=== PATIENT | female | born 1995 | race Hispanic/Latino ===

== ENCOUNTER 2024-06-27 16:21 | Emergency (ER) | payer SELFPAY ==
[~2024-06-27] VITALS: Ht 147.3 cm; Wt 86.2 kg
--- NOTE | 2024-06-27 17:51 | HMCIMG ---
ULTRASOUND OF THE PELVIS ULTRASOUND ABD VASCULAR LIMITED INDICATION: Vaginal bleeding COMPARISONS: None TECHNIQUE: Transabdominal real-time sonographic images were acquired earlier, and subsequently made available for review. FINDINGS: The uterus measures 7.3 x 4.3 x 3.6 cm. The uterus is normal in echotexture and contour. The endometrial thickness measures 8.0 mm. The right ovary measures 2.5 x 1.5 x 2.7 cm. The right ovary is normal in size, shape and echogenicity. No right adnexal masses demonstrated. Color Doppler flow is normal throughout the right ovary. Spectral Doppler analysis demonstrates a normal waveform pattern. The left ovary measures 2.4 x 1.9 x 2.8 cm. The left ovary is normal in size, shape and echogenicity. No left adnexal masses demonstrated. Color Doppler flow is normal throughout the left ovary. Spectral Doppler analysis demonstrates a normal waveform pattern. No free pelvic fluid demonstrated. IMPRESSION: No acute pelvic abnormality noted.
[2024-06-27 18:18] LABS: BASOPHILS # (AUTO) 0.03 K/uL (0.00-0.20); BASOPHILS % (AUTO) 0.3 % (0.0-5.0); EOSINOPHILS # (AUTO) 0.11 K/uL (0.00-0.70); EOSINOPHILS % (AUTO) 1.1 % (0.0-8.0); HEMATOCRIT 40.1 % (36-48); IMMATURE GRANULOCYTE ABSOLUTE 0.02 K/uL (0-1); LYMPHOCYTES # (AUTO) 3.4 K/uL (1.0-4.8); LYMPHOCYTES % (AUTO) 33.5 % (21.0-51.0); MEAN CORPUSCULAR HEMOGLOBIN 28.8 pg (27.0-33.0); MEAN CORPUSCULAR HGB CONC 32.7 g/dL (32.0-36.0); MEAN CORPUSCULAR VOLUME 88.1 fL (79-99); MONOCYTES # (AUTO) 0.8 K/uL (0.1-1.0); MONOCYTES % (AUTO) 7.8 % (3.0-13.0); NEUTROPHILS # (AUTO) 5.8 K/uL (1.8-7.7); NEUTROPHILS % (AUTO) 57.1 % (40.0-77.0); PLATELET COUNT (AUTO) 312 K/uL (130-400); RED BLOOD CELL COUNT(AUTO) 4.55 MIL/uL (4.00-5.50); RED CELL DISTRIBUTION WIDTH 13.5 % (11.0-15.5); WHITE BLOOD COUNT (AUTO) 10.2 K/uL (4.8-10.8)
[2024-06-27 18:40] LABS: CREATININE 0.7 mg/dL (0.5-1.0); POTASSIUM 4.3 mmol/L (3.5-5.1)
[2024-06-27 18:54] LABS: THYROID STIMULATING HORMONE 3.39 uIU/mL (0.36-3.74)
--- NOTE | 2024-06-27 18:58 | ERN ---
General Chief Complaint: Vaginal Problems/Bleeding Stated Complaint: PELVIC PAIN,MULTIPLE COMPLAINTS Time Seen by MD: 16:22 Time Seen by Midlevel: 16:22 Source: patient History of Present Illness Initial Comments Patient is a 21-year-old female with a past medical history of dysfunctional uterine bleeding presenting to the emergency department with pelvic pain and vaginal bleeding that has been ongoing for the last 40 days. She was not seen a primary care doctor for this and has not seen an OBGYN. She states that she was now feeling fatigued and weak. Denies any other symptoms. Denies being . Denies being on any control. She reports similar episodes in the past but has never been evaluated outpatient. Allergies: Coded Allergies: No Known Allergies (Unverified Allergy, Unknown, 06/27/24) Past Medical History Past Medical History: No Pertinent History Past Surgical History: None ROS Dictation CONSTITUTIONAL: Negative except for HPI HEAD/FACE: Negative except for HPI EENT: Negative except for HPI RESPIRATORY: Negative except for HPI GASTROINTESTINAL/ABDOMINAL: Negative except for HPI GENITOURINARY: Negative except for HPI MUSCULOSKELETAL: Negative except for HPI INTEGUMENTARY: Negative except for HPI NEUROLOGICAL/PSYCH: Negative except for HPI HEMATOLOGIC/LYMPHATIC: Negative except for HPI All Systems Negative, Except as noted above. 13 point review of systems assessed and all negative except for above. Physical Exam Physical Exam Dictation Vital Signs reviewed General Appearance: Alert, oriented x 3, no acute distress, well developed, nourished. Head and Face: non-traumatic. Eyes: PERRL, pink conjunctivas, eyelid no trauma, anterior chamber with arcus senilis. Ears: Pinnas intact and no signs of trauma or erythema ear canals clear and no discharge TM no erythema Nose: No discharge, no bleeding. Oropharynx: Mouth normal, tongue pink, pharynx clear,no erythema, tonsils no exudates, no abscesses noted, mucous membrane moist Neck: Supple, non-tender, no thyromegaly, no masses, no JVD, no bruits Breast:Deferred Chest:No tenderness, no crepitus, no paradoxical movement, no retractions Lungs:Clear, well-ventilated, symmetric, no rales, no wheezing, no rhonchi, no stridor, good breath sounds bilaterally Heart: Regular rate, regular rhythm, no murmur, no gallops Vascular: no peripheral edema, Abdomen: Soft, positive bowel sounds, nondistended, no guarding, nontender, no rebound, no masses no hepatomegaly, no splenomegaly, no Delgado's sign, no hernias. Rectal: Deferred Genital: Deferred Neurological: Normal speech, motor function intact, sensory function intact Musculoskeletal: Neck nontender, full range of motion, back nontender, full range of motion, Extremities: nontender, full range of motion Skin: Color pink, dry, no turgor, no rash, no lacerations, no abrasions, no contusions. Lymphatic: Deferred Results Laboratory and Microbiology Lab and Micro Result Laboratory Tests Test 06/27/24 17:55 White Blood Count 10.2 K/uL (4.8-10.8) Red Blood Count 4.55 MIL/uL (4.00-5.50) Hemoglobin 13.1 g/dL (12.0-16.0) Hematocrit 40.1 % (36-48) Mean Corpuscular Volume 88.1 fL (79-99) Mean Corpuscular Hemoglobin 28.8 pg (27.0-33.0) Mean Corpuscular Hemoglobin Concent 32.7 g/dL (32.0-36.0) Red Cell Distribution Width 13.5 % (11.0-15.5) Platelet Count 312 K/uL (130-400) Mean Platelet Volume 10.3 fL (7.5-10.5) Immature Granulocyte % (Auto) 0.2 % (0-1) Neutrophils (%) (Auto) 57.1 % (40.0-77.0) Lymphocytes (%) (Auto) 33.5 % (21.0-51.0) Monocytes (%) (Auto) 7.8 % (3.0-13.0) Eosinophils (%) (Auto) 1.1 % (0.0-8.0) Basophils (%) (Auto) 0.3 % (0.0-5.0) Neutrophils # (Auto) 5.8 K/uL (1.8-7.7) Lymphocytes # (Auto) 3.4 K/uL (1.0-4.8) Monocytes # (Auto) 0.8 K/uL (0.1-1.0) Eosinophils # (Auto) 0.11 K/uL (0.00-0.70) Basophils # (Auto) 0.03 K/uL (0.00-0.20) Absolute Immature Granulocyte (auto 0.02 K/uL (0-1) Nucleated Red Blood Cells 0.0 % (0.0-0.19) Sodium Level 139 mmol/L (136-145) Potassium Level 4.3 mmol/L (3.5-5.1) Chloride Level 100 mmol/L (101-111) L Carbon Dioxide Level 31 mmol/L (21-32) Blood Urea Nitrogen 12 mg/dL (7-18) Creatinine 0.7 mg/dL (0.5-1.0) Glomerular Filtration Rate Calc 121 mL/min (>90) Random Glucose 97 mg/dL (70-105) Total Calcium 9.4 mg/dL (8.5-10.1) Thyroid Stimulating Hormone (TSH) 3.39 uIU/mL (0.36-3.74) Serum Test, Qualitative NEGATIVE (NEGATIVE) Labs Reviewed?: Yes MDM MDM: Patient is a 21-year-old female with a past medical history of dysfunctional uterine bleeding presenting to the emergency department with pelvic pain and vaginal bleeding that has been ongoing for the last 40 days. She was not seen a primary care doctor for this and has not seen an OBGYN. She states that she was now feeling fatigued and weak. Denies any other symptoms. Denies being . Denies being on any control. She reports similar episodes in the past but has never been evaluated outpatient. On arrival patient is in no acute distress. Initial vital signs are stable. Blood pressure is 126/86. Heart rate is normal at 90 beats per minute. Her CBC is unremarkable. There was no leukocytosis, anemia, or thrombocytopenia. Hemoglobin is normal at 13.1. Her chemistries unremarkable. Her test is negative. Pelvic ultrasound reveals no acute pelvic abnormality. Patient was remained stable in the emergency department. Denies any episodes of vaginal bleeding while in the ER. The patient was advised that she will need to follow up with OBGYN outpatient as there is no need for emergent intervention at this time. Patient was not anemic and does not require a blood transfusion at this time. Patient is stable for discharge at this time Differential diagnosis: Anemia, dysfunctional uterine bleeding, uterine fibroids, There are no social concerns with this patient. Prescription drug management Prescriptions will include: None Medical management and examination interpretation discussions were had by me with other qualified healthcare professionals as indicated for the patient's care. ED Course Orders Procedure Category Date Status Time Cbc With Differential LAB 06/27/24 Complete 17:01 Basic Metabolic Panel LAB 06/27/24 Complete 17: Testing, LAB 06/27/24 Complete Serum Hcg 17: Thyroid Stimulating LAB 06/27/24 Complete Hormone 17:01 Us Pelvic Non-Ob US 06/27/24 Resulted Limited 17:01 Vital Signs Date Time Temp Pulse Resp B/P (MAP) Pulse Ox O2 Delivery O2 Flow Rate FiO2 06/27/24 19:30 98.4 88 18 132/81 99 Room Air* 0 21 06/27/24 16:56 98.8 90 20 126/86 100 Room Air [address] [address] IMAGING REPORT Signed PATIENT: PEEWEE IRBY MR#: [id number] : 1995 SEX: F AGE: 29 LOCATION: [facility] ORDER 04 STATUS: REG ER REPORT#: [id number] SERVICE 00 REASON: r/o uterine fibroids ORDERING PHYSICIAN: SARATH CHAWLA PROCEDURE: PELVLTD - US PELVIC NON-OB LIMITED ULTRASOUND OF THE PELVIS ULTRASOUND ABD VASCULAR LIMITED INDICATION: Vaginal bleeding COMPARISONS: None TECHNIQUE: Transabdominal real-time sonographic images were acquired earlier, and subsequently made available for review. FINDINGS: The uterus measures 7.3 x 4.3 x 3.6 cm. The uterus is normal in echotexture and contour. The endometrial thickness measures 8.0 mm. The right ovary measures 2.5 x 1.5 x 2.7 cm. The right ovary is normal in size, shape and echogenicity. No right adnexal masses demonstrated. Color Doppler flow is normal throughout the right ovary. Spectral Doppler analysis demonstrates a normal waveform pattern. The left ovary measures 2.4 x 1.9 x 2.8 cm. The left ovary is normal in size, shape and echogenicity. No left adnexal masses demonstrated. Color Doppler flow is normal throughout the left ovary. Spectral Doppler analysis demonstrates a normal waveform pattern. No free pelvic fluid demonstrated. IMPRESSION: No acute pelvic abnormality noted. DICTATED BY: LINO LINDSEY MD DATE: 06/27/241746 ELECTRONICALLY SIGNED BY: LINO LINDSEY MD DATE: 06/27/24 175 DX & DISP Disposition: Discharge Departure Impression: Primary Impression: Dysfunctional uterine bleeding Condition: Stable Additional Instructions: Your blood work today is unremarkable. Your hemoglobin is normal. Your pelvic ultrasound does not reveal any acute abnormalities. You will need to follow up with your primary care doctor and OBGYN for further evaluation. Return precautions discussed. Referrals: SELF,REFERRAL (PCP) Time of Disposition: 18:57 I have reviewed the case, and I agree with, Diagnosis and Plan I performed the substantive portion of the visit. I have reviewed and personally made and approve the management plan that is documented in the note by myself or the JOBY. I acknowledge for responsibility for the patient's management plan. SARATH CHAWLA Jun 27, 2024 18:58
[2024-06-27 19:30] VITALS: BP 132/81; PULSE 88; RESP 18; TEMP 98.5; O2SAT 99
== END 2024-06-27 19:42 | disposition home or self-care (01) ==
LOC: EDH 16:21
DX: N93.8 Other specified abnormal uterine and vaginal bleeding (principal)
CPT/HCPCS: 36415; 76857; 80048; 84443; 84703; 85025; 99284